=== PATIENT | female | born 1980 ===

== ENCOUNTER 2018-02-15 10:56 | Emergency (ER) | payer MEDICAID, OTHER ==
[2018-02-15 13:08] VITALS: RESP 18; O2SAT 100
--- NOTE | 2018-02-15 13:39 | ED PDOC ---
HPI: General Adult Time Seen by Provider: 02/15/18 12:23 Chief Complaint (Nursing): Abnormal Skin Integrity Chief Complaint (Provider): finger swelling History Per: Patient (38 y/o female with finger left hand swelling x 2 days. No fevers/chills.) Past Medical History Reviewed: Historical Data, Nursing Documentation, Vital Signs Vital Signs: Last Vital Signs Temp 97.6 F 02/15/18 11:03 Pulse 83 02/15/18 11:03 Resp 18 02/15/18 11:03 BP 134/68 02/15/18 11:03 Pulse Ox 100 02/15/18 11:03 - Family History Family History: States: No Known Family Hx - Home Medications Home Medications: Ambulatory Orders Medication Instructions Recorded Cephalexin [Keflex] 500 mg PO TID #21 capsule 02/15/18 - Allergies Allergies/Adverse Reactions: Allergies Allergy/AdvReac Type Severity Reaction Status Date / Time No Known Allergies Allergy Verified 02/15/18 11:25 Review of Systems ROS Statement: Except As Marked, All Systems Reviewed And Found Negative Physical Exam - Reviewed Nursing Documentation Reviewed: Yes Vital Signs Reviewed: Yes - Physical Exam Appears: Positive for: Well, Non-toxic, No Acute Distress Head Exam: Positive for: ATRAUMATIC, NORMAL INSPECTION, NORMOCEPHALIC Skin: Positive for: Normal Color, Warm, DRY Eye Exam: Positive for: EOMI, Normal appearance, PERRL ENT: Positive for: Normal ENT Inspection Neck: Positive for: Normal, Painless ROM Cardiovascular/Chest: Positive for: Regular Rate, Rhythm Respiratory: Positive for: CNT, Normal Breath Sounds Gastrointestinal/Abdominal: Positive for: Normal Exam, Soft Back: Positive for: Normal Inspection Extremity: Positive for: Normal ROM, Swelling (distal tip of fourth digit left hand with mild swelling but no fluctuance or erythema) Neurologic/Psych: Positive for: Alert, Oriented - ECG O2 Sat by Pulse Oximetry: 100 Disposition - Clinical Impression Clinical Impression: Paronychia - Patient ED Disposition Is Patient to be Admitted: No - Disposition Referrals: [facility] [Outside] Disposition: Routine/Home Disposition Time: 13:40 Condition: FAIR Prescriptions: Cephalexin [Keflex] 500 mg PO TID #21 capsule Instructions: Paronychia (DC) Print Language: EQUATORIAL GUINEAN
[2018-02-15 14:42] VITALS: BP 130/72; PULSE 78; TEMP 98
== END 2018-02-15 14:40 | disposition home or self-care (01) ==
LOC: H.ER 10:56
DX: L03.012 Cellulitis of left finger (principal)